=== PATIENT | female | born 1965 | race Caucasian/White ===

== ENCOUNTER 2019-04-05 10:48 | Emergency (ER) | payer OTHER ==
[~2019-04-05] VITALS: Ht 157.5 cm; Wt 88.9 kg
[~2019-04-05 10:48] MED LIST: AMOX500 PO; AMRIX; AZIT500 PO; BUTASPCAF PO; CODBUTASA PO; CYCL10 PO; ESTRTP VAG; FLUT.05NI; HYDACE5 PO; NAPR500 PO; OXYACE5T PO; PRED20 PO; PROGESTERONE100 MG PO; PROP10; TOPI25; [UNRECOGNIZED DRUG - REMARK]
[2019-04-05 11:58] LABS: Source, Urine Clean Catch
[2019-04-05 12:02] LABS: Appearance, Urine Clear (Clear); Bilirubin, Urine Neg (Neg); Blood, Urine 1+ (Neg); Color, Urine Yellow (P-Yellow); Glucose Qualitative, Urine Neg (Neg); Ketones, Urine Neg (Neg); Leukocyte Esterase, Urine Neg (Neg); Nitrite, Urine Neg (Neg); Protein, Urine Neg (Neg); Urobilinogen, Urine NORM (Normal)
[2019-04-05] MEDS ORDERED: Robaxin500 MG PO (13:01)
[2019-04-05] MEDS ORDERED: PRED10 PO (13:01)
[2019-04-05 13:12] LABS: Bacteria Not Seen /hpf; Red Blood Cells, Urine 0-2 /hpf (0-2); Squamous Epithelial Cells Few /hpf (Few); White Blood Cells, Urine 0-2 /hpf (0-5)
== END 2019-04-05 13:21 | disposition home or self-care (01) ==
LOC: ER 10:48
PROVIDERS: Physician Assistant
DX: M54.5 Low back pain (principal); R10.9 Unspecified abdominal pain; Z88.6 Allergy status to analgesic agent
CPT/HCPCS: 74176; 81001; 99284-25

== ENCOUNTER 2019-09-09 10:04 | Emergency (ER) | payer OTHER ==
[~2019-09-09] VITALS: Ht 157.5 cm; Wt 75.8 kg
[~2019-09-09 10:04] MED LIST changes: +PRED10 PO; +Robaxin500 MG PO
[2019-09-09] MEDS ORDERED: METF500 PO (10:20)
[2019-09-09] MEDS ORDERED: PRAV20 PO (10:20)
[2019-09-09] MEDS ORDERED: PROP80ER PO (10:20)
[2019-09-09] MEDS ORDERED: AMLO10 PO (10:20)
[2019-09-09] MEDS ORDERED: AIMOVIG AU70 MG/1 ML SC (10:21)
[2019-09-09] MEDS ORDERED: BENADRYL25 M1 PO (10:38)
[2019-09-09] MEDS ORDERED: Prednisone20 MG PO (10:38)
[2019-09-09] MEDS ORDERED: Triamcinolone A15 G3 TOP (10:38)
== END 2019-09-09 10:59 | disposition home or self-care (01) ==
LOC: ER 10:04
DX: L50.1 Idiopathic urticaria (principal); E11.9 Type 2 diabetes mellitus without complications; Z88.8 Allergy status to other drugs, medicaments and biological substances; Z79.899 Other long term (current) drug therapy; Z79.84 Long term (current) use of oral hypoglycemic drugs
CPT/HCPCS: 99282

== ENCOUNTER 2022-05-22 10:58 | Day surgery (SDC) | payer OTHER ==
[~2022-05-22] VITALS: Ht 154.9 cm; Wt 63.4 kg
[~2022-05-22 10:58] MED LIST changes: +AIMOVIG AU70 MG/1 ML SC; +AMLO10 PO; +BENADRYL25 M1 PO; +CATAPRES0.1 MG PO; +METF500 PO; +PRAV20 PO; +PROP80ER PO; +Prednisone20 MG PO; +RIZATRIPTAN10 MG SL; +Triamcinolone A15 G3 TOP
[2022-05-22] MEDS ORDERED: AIMOVIG AU70 MG/1 ML SQ (11:47)
== END 2022-05-22 14:05 | disposition home or self-care (01) ==
LOC: ORSCSDS 10:58
PROVIDERS: Podiatrist Foot & Ankle Surgery
PROC: 0QSQ04Z Reposition Right Toe Phalanx with Internal Fixation Device, Open Approach (ICD-10-PCS; principal; 2022-05-22 12:30)
DX: M20.11 Hallux valgus (acquired), right foot (principal); I10 Essential (primary) hypertension; E11.9 Type 2 diabetes mellitus without complications; E78.5 Hyperlipidemia, unspecified; Z79.899 Other long term (current) drug therapy; Z79.84 Long term (current) use of oral hypoglycemic drugs
CPT/HCPCS: 82947; C1713; C1769; J0171; J0690; J1100; J1885; J2001; J2405; J2704; J2795; J3010; J7120

== ENCOUNTER 2024-05-02 15:35 | Emergency (ER) | payer OTHER ==
[~2024-05-02] VITALS: Ht 157.5 cm; Wt 63.5 kg
[~2024-05-02 15:35] MED LIST changes: +AIMOVIG AU70 MG/1 ML SQ; +AMIODARONE HCL400 M2 PO; +Amiodarone HCl200 MG PO; +CEPH500 PO; +ELIQUIS5 M2 PO; +METO10 PO; +ONDA4ODT MM
[2024-05-02] MEDS ORDERED: NS 1,000 ML IV SCH (16:30)
[2024-05-02] MEDS ORDERED: Ondansetron HCl 2 MG / ML 2ML Vial IV ONE ×3 (16:30→19:25)
[2024-05-02 16:57] LABS: BASOPHILS ABSOLUTE AUTO 0.05 K/mm3 (0.00-0.23); BASOPHILS PERCENT AUTO 0 % (0-2); EOSINOPHILS PERCENT AUTO 0 % (0-6); Hematocrit 39.2 % (33.0-51.0); Hemoglobin 13.3 g/dL (11.5-16.0); IMMATURE GRAN ABSOLUTE AUTO 0.05 K/mm3 (0.00-0.10); IMMATURE GRAN PERCENT AUTO 0 % (0-1); LYMPHOCYTES ABSOLUTE AUTO 0.96 K/mm3 (0.84-5.20); LYMPHOCYTES PERCENT AUTO 7 % (21-46); MONOCYTES ABSOLUTE AUTO 0.54 K/mm3 (0.16-1.47); MONOCYTES PERCENT AUTO 4 % (4-13); Mean Corpuscular HGB 31.7 pg (26.0-34.0); Mean Corpuscular HGB Conc 33.9 g/dL (31.5-36.5); Mean Corpuscular Volume 93 fL (80-100); Mean Platelet Volume 11.6 fL (9.1-12.4); NEUTROPHILS ABSOLUTE AUTO 11.89 K/mm3 (1.96-9.15); NEUTROPHILS PERCENT AUTO 88 % (41-73); Platelet Count 330 K/mm3 (150-400); RDW Coefficient Variation 13.4 % (11.7-14.2); RDW Standard Deviation 46.2 fL (35.1-46.3); White Blood Cell Count 13.49 K/mm3 (4.00-11.30)
[2024-05-02 17:36] LABS: Albumin, Blood 4.5 g/dL (3.4-5.0); Albumin/Globulin Ratio 1.1 (0.8-1.8); Bilirubin, Total 0.5 mg/dL (0.1-1.0); Calcium, Blood 10.2 mg/dL (8.5-10.1); Creatinine, Blood 0.85 mg/dL (0.40-1.00); Globulin, Blood 4.1 g/dL (2.2-4.0); Potassium, Blood 3.7 mmol/L (3.5-5.5); Total Protein, Blood 8.6 g/dL (6.4-8.2)
[2024-05-02 18:56] VITALS: BP 209/85
[2024-05-02] MEDS ORDERED: ONDA4ODT MM ×2 (19:54→19:55)
== END 2024-05-02 20:07 | disposition home or self-care (01) ==
LOC: ER 15:35
PROVIDERS: Physician Assistant
DX: A08.4 Viral intestinal infection, unspecified (principal); E11.9 Type 2 diabetes mellitus without complications; Z79.899 Other long term (current) drug therapy; Z88.6 Allergy status to analgesic agent; Z79.84 Long term (current) use of oral hypoglycemic drugs
CPT/HCPCS: 80053; 83690; 85025; 93005; 93010; 96361; 96374; 96376; 99284-25; J2405; J7030

== ENCOUNTER 2024-05-06 14:43 | Emergency (ER) | payer OTHER ==
[~2024-05-06] VITALS: Ht 154.9 cm; Wt 60.8 kg
[2024-05-06] MEDS ORDERED: NS 1,000 ML IV ONE (15:09)
[2024-05-06 15:10] LABS: BASOPHILS ABSOLUTE AUTO 0.05 K/mm3 (0.00-0.23); BASOPHILS PERCENT AUTO 1 % (0-2); EOSINOPHILS ABSOLUTE AUTO 0.07 K/mm3 (0.00-0.68); EOSINOPHILS PERCENT AUTO 1 % (0-6); Hematocrit 36.6 % (33.0-51.0); Hemoglobin 12.9 g/dL (11.5-16.0); IMMATURE GRAN ABSOLUTE AUTO 0.02 K/mm3 (0.00-0.10); IMMATURE GRAN PERCENT AUTO 0 % (0-1); LYMPHOCYTES ABSOLUTE AUTO 2.62 K/mm3 (0.84-5.20); LYMPHOCYTES PERCENT AUTO 30 % (21-46); MONOCYTES ABSOLUTE AUTO 0.86 K/mm3 (0.16-1.47); MONOCYTES PERCENT AUTO 10 % (4-13); Mean Corpuscular HGB 31.2 pg (26.0-34.0); Mean Corpuscular HGB Conc 35.2 g/dL (31.5-36.5); Mean Corpuscular Volume 89 fL (80-100); Mean Platelet Volume 11.9 fL (9.1-12.4); NEUTROPHILS PERCENT AUTO 59 % (41-73); Platelet Count 308 K/mm3 (150-400); RDW Coefficient Variation 13.2 % (11.7-14.2); RDW Standard Deviation 42.9 fL (35.1-46.3); Red Blood Cell Count 4.13 M/mm3 (3.80-5.20); White Blood Cell Count 8.72 K/mm3 (4.00-11.30)
[2024-05-06 15:14] LABS: Albumin, Blood 3.8 g/dL (3.4-5.0); Albumin/Globulin Ratio 1.1 (0.8-1.8); Bilirubin, Total 0.5 mg/dL (0.1-1.0); Bun/Creatinine Ratio 24.3 (12.0-20.0); Calcium, Blood 9.1 mg/dL (8.5-10.1); Creatinine, Blood 1.77 mg/dL (0.40-1.00); Globulin, Blood 3.4 g/dL (2.2-4.0); Potassium, Blood 3.5 mmol/L (3.5-5.5); Total Protein, Blood 7.2 g/dL (6.4-8.2)
[2024-05-06] MEDS ORDERED: NS 1,000 ML IV SCH (15:55)
[2024-05-06 16:35] VITALS: BP 112/76
== END 2024-05-06 16:52 | disposition home or self-care (01) ==
LOC: ER 14:43
PROVIDERS: Emergency Medicine
DX: I47.10 Supraventricular tachycardia, unspecified (principal); N17.9 Acute kidney failure, unspecified; I21.A1 Myocardial infarction type 2; Z88.8 Allergy status to other drugs, medicaments and biological substances; Z79.899 Other long term (current) drug therapy; Z79.84 Long term (current) use of oral hypoglycemic drugs; E11.9 Type 2 diabetes mellitus without complications; E78.5 Hyperlipidemia, unspecified; I10 Essential (primary) hypertension; I48.91 Unspecified atrial fibrillation
CPT/HCPCS: 71045; 80053; 83735; 84484; 85025; 93005; 93010; 96360; 96361; 99285-25; J7030

== ENCOUNTER 2024-07-02 07:27 | Emergency (ER) | payer OTHER ==
[~2024-07-02] VITALS: Ht 154.9 cm; Wt 60.8 kg
[2024-07-02] MEDS ORDERED: Tambocor100 MG PO (08:05)
[2024-07-02] MEDS ORDERED: LOSA50 PO (08:06)
[2024-07-02] MEDS ORDERED: PRAV20 PO (08:07)
[2024-07-02] MEDS ORDERED: METO25ER PO (08:07)
[2024-07-02] MEDS ORDERED: ACET500 PO (08:08)
[2024-07-02] MEDS ORDERED: NARA2.5 PO (08:10)
[2024-07-02 08:12] LABS: BASOPHILS ABSOLUTE AUTO 0.02 K/mm3 (0.00-0.23); BASOPHILS PERCENT AUTO 0 % (0-2); EOSINOPHILS ABSOLUTE AUTO 0.11 K/mm3 (0.00-0.68); EOSINOPHILS PERCENT AUTO 2 % (0-6); Hematocrit 34.4 % (33.0-51.0); Hemoglobin 11.9 g/dL (11.5-16.0); IMMATURE GRAN ABSOLUTE AUTO 0.02 K/mm3 (0.00-0.10); IMMATURE GRAN PERCENT AUTO 0 % (0-1); LYMPHOCYTES ABSOLUTE AUTO 1.44 K/mm3 (0.84-5.20); LYMPHOCYTES PERCENT AUTO 24 % (21-46); MONOCYTES ABSOLUTE AUTO 0.47 K/mm3 (0.16-1.47); MONOCYTES PERCENT AUTO 8 % (4-13); Mean Corpuscular HGB 30.8 pg (26.0-34.0); Mean Corpuscular HGB Conc 34.6 g/dL (31.5-36.5); Mean Corpuscular Volume 89 fL (80-100); Mean Platelet Volume 12.2 fL (9.1-12.4); NEUTROPHILS ABSOLUTE AUTO 4.08 K/mm3 (1.96-9.15); NEUTROPHILS PERCENT AUTO 66 % (41-73); Platelet Count 264 K/mm3 (150-400); RDW Coefficient Variation 13.5 % (11.7-14.2); RDW Standard Deviation 44.6 fL (35.1-46.3); Red Blood Cell Count 3.86 M/mm3 (3.80-5.20); White Blood Cell Count 6.14 K/mm3 (4.00-11.30)
[2024-07-02 08:33] LABS: Albumin, Blood 3.8 g/dL (3.4-5.0); Albumin/Globulin Ratio 1.1 (0.8-1.8); Bilirubin, Total 0.5 mg/dL (0.1-1.0); Bun/Creatinine Ratio 14.5 (12.0-20.0); Calcium, Blood 9.5 mg/dL (8.5-10.1); Creatinine, Blood 1.24 mg/dL (0.40-1.00); Globulin, Blood 3.4 g/dL (2.2-4.0); Potassium, Blood 4.1 mmol/L (3.5-5.5); Total Protein, Blood 7.2 g/dL (6.4-8.2)
[2024-07-02] MEDS ORDERED: Metoprolol Tartrate 1 MG/ML 5 ML VIAL IV PRN (08:50)
[2024-07-02] MEDS ORDERED: NS 1,000 ML IV SCH (09:35)
[2024-07-02] MEDS ORDERED: Etomidate 2MG / ML 10ML Vial IV SCH (10:40)
[2024-07-02 12:15] VITALS: BP 97/58
[2024-07-03] MEDS ORDERED: ONDA4ODT MM (12:54)
== END 2024-07-02 12:25 | disposition home or self-care (01) ==
LOC: ER 07:27
PROVIDERS: Emergency Medicine
DX: I48.92 Unspecified atrial flutter (principal); E11.9 Type 2 diabetes mellitus without complications; E78.5 Hyperlipidemia, unspecified; I10 Essential (primary) hypertension; I48.91 Unspecified atrial fibrillation; I25.2 Old myocardial infarction; Z79.84 Long term (current) use of oral hypoglycemic drugs; Z79.899 Other long term (current) drug therapy; Z88.6 Allergy status to analgesic agent
CPT/HCPCS: 71045; 80053; 83735; 84484; 85025; 92960; 93005; 93010; 96361-59; 96374-59; 96376-59; 99285-25; J7030

== ENCOUNTER 2024-07-03 11:03 | Emergency (ER) | payer OTHER ==
[~2024-07-03] VITALS: Ht 165.1 cm; Wt 68.0 kg
[~2024-07-03 11:03] MED LIST changes: +ACET500 PO; +LOSA50 PO; +METO25ER PO; +NARA2.5 PO; +Tambocor100 MG PO
[2024-07-03 11:15] VITALS: BP 170/98
[2024-07-03] MEDS ORDERED: Ondansetron HCl 2 MG / ML 2ML Vial IV ONE (11:20)
[2024-07-03] MEDS ORDERED: NS 1,000 ML IV SCH ×2 (11:20→11:25)
[2024-07-03 11:42] LABS: BASOPHILS ABSOLUTE AUTO 0.06 K/mm3 (0.00-0.23); BASOPHILS PERCENT AUTO 1 % (0-2); EOSINOPHILS ABSOLUTE AUTO 0.05 K/mm3 (0.00-0.68); EOSINOPHILS PERCENT AUTO 0 % (0-6); Hematocrit 34.8 % (33.0-51.0); Hemoglobin 11.9 g/dL (11.5-16.0); IMMATURE GRAN ABSOLUTE AUTO 0.05 K/mm3 (0.00-0.10); IMMATURE GRAN PERCENT AUTO 0 % (0-1); LYMPHOCYTES ABSOLUTE AUTO 1.26 K/mm3 (0.84-5.20); LYMPHOCYTES PERCENT AUTO 10 % (21-46); MONOCYTES ABSOLUTE AUTO 0.79 K/mm3 (0.16-1.47); MONOCYTES PERCENT AUTO 6 % (4-13); Mean Corpuscular HGB 31.5 pg (26.0-34.0); Mean Corpuscular HGB Conc 34.2 g/dL (31.5-36.5); Mean Corpuscular Volume 92 fL (80-100); Mean Platelet Volume 12.3 fL (9.1-12.4); NEUTROPHILS ABSOLUTE AUTO 10.17 K/mm3 (1.96-9.15); NEUTROPHILS PERCENT AUTO 82 % (41-73); Platelet Count 277 K/mm3 (150-400); RDW Coefficient Variation 13.6 % (11.7-14.2); RDW Standard Deviation 46.2 fL (35.1-46.3); Red Blood Cell Count 3.78 M/mm3 (3.80-5.20); White Blood Cell Count 12.38 K/mm3 (4.00-11.30)
[2024-07-03 12:07] LABS: Albumin, Blood 4.1 g/dL (3.4-5.0); Albumin/Globulin Ratio 1.2 (0.8-1.8); Bilirubin, Total 0.6 mg/dL (0.1-1.0); Bun/Creatinine Ratio 14.7 (12.0-20.0); Calcium, Blood 9.3 mg/dL (8.5-10.1); Creatinine, Blood 1.16 mg/dL (0.40-1.00); Globulin, Blood 3.5 g/dL (2.2-4.0); Potassium, Blood 4.1 mmol/L (3.5-5.5); Total Protein, Blood 7.6 g/dL (6.4-8.2)
[2024-07-03] MEDS ORDERED: ONDA4ODT MM (12:54)
== END 2024-07-03 13:08 | disposition home or self-care (01) ==
LOC: ER 11:03
PROVIDERS: Physician Assistant
DX: R11.2 Nausea with vomiting, unspecified (principal); F12.90 Cannabis use, unspecified, uncomplicated; E86.0 Dehydration; I48.92 Unspecified atrial flutter; E11.9 Type 2 diabetes mellitus without complications; E78.5 Hyperlipidemia, unspecified; I10 Essential (primary) hypertension; Z79.01 Long term (current) use of anticoagulants; Z79.84 Long term (current) use of oral hypoglycemic drugs; Z79.899 Other long term (current) drug therapy
CPT/HCPCS: 80053; 83690; 85025; 96361; 96374; 99283; 99283-25; J2405; J7030

== ENCOUNTER → 2025-07-23 | Outpatient (CLI) | payer OTHER | LOC: LAB 13:00 → LAB SHORT 13:00 | DX: E11.9 Type 2 diabetes mellitus without complications (principal) | CPT/HCPCS: 82043 ==